=== PATIENT | female | born 1985 | race Caucasian/White ===

== ENCOUNTER 2016-06-09 20:25 | Emergency (ER) | payer SELFPAY ==
[2014-01-23 06:02] VITALS: BMI 38.7
[~2016-06-09 20:25] MED LIST: DIABETA2.5 MG PO; HYDROCODONE-APA1 TAB PO; IBUPROFEN600 MG PO; PRENATAL COMPLE1 TAB PO
== END 2016-06-09 22:04 | disposition home or self-care (01) ==
LOC: D.ER 20:25
DX: S76.911A Strain of unspecified muscles, fascia and tendons at thigh level, right thigh, initial encounter (principal); X58.XXXA Exposure to other specified factors, initial encounter; Y93.89 Activity, other specified; Y92.89 Other specified places as the place of occurrence of the external cause; F41.9 Anxiety disorder, unspecified; F32.9 Major depressive disorder, single episode, unspecified